=== PATIENT | female | born 1970 | race Caucasian/White ===

== ENCOUNTER 2024-07-27 19:05 | Emergency (ER) | payer OTHER, SELFPAY ==
[2024-07-27 19:11] VITALS: BP 134/92
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
[2024-07-27 23:31] VITALS: BP 113/86
== END 2024-07-27 23:35 | disposition home or self-care (01) ==
LOC: EMR 19:05
PROVIDERS: EMERGENCY PHYSICIAN Emergency Medicine; OTHER PHYSICIAN Student in an Organized Health Care Education/Training Program
DX: S20.211A Contusion of right front wall of thorax, initial encounter (principal); S00.83XA Contusion of other part of head, initial encounter; S40.811A Abrasion of right upper arm, initial encounter; V00.831A Fall from motorized mobility scooter, initial encounter
CPT/HCPCS: 99283; 71101

== ENCOUNTER 2025-06-06 13:03 | Emergency (ER) | payer SELFPAY ==
[2025-06-06 13:05] VITALS: BP 127/88
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
[2025-06-06] MEDS: TYLENOL 650 MG PO (14:07)
== END 2025-06-06 14:50 | disposition home or self-care (01) ==
LOC: EMR 13:03
PROVIDERS: EMERGENCY PHYSICIAN Emergency Medicine; FAMILY PHYSICIAN Student in an Organized Health Care Education/Training Program
DX: S16.1XXA Strain of muscle, fascia and tendon at neck level, initial encounter (principal); S06.0XAA Concussion with loss of consciousness status unknown, initial encounter; M79.18 Myalgia, other site; V43.52XA Car driver injured in collision with other type car in traffic accident, initial encounter; I10 Essential (primary) hypertension; J45.909 Unspecified asthma, uncomplicated; Y92.410 Unspecified street and highway as the place of occurrence of the external cause; Z79.890 Hormone replacement therapy
CPT/HCPCS: 99282

== ENCOUNTER → 2025-08-20 19:30 | Outpatient (REF) | payer OTHER, SELFPAY | LOC: MRI 19:30 | PROVIDERS: ATTENDING PHYSICIAN Chiropractor; FAMILY PHYSICIAN Student in an Organized Health Care Education/Training Program | DX: M54.13 Radiculopathy, cervicothoracic region (principal) | CPT/HCPCS: 72141 ==